=== PATIENT | female | born 1995 | race Caucasian/White ===

== ENCOUNTER → 2018-11-02 | Outpatient (CLI) | payer OTHER | LOC: LAB SHORT 15:00 → LAB 15:00 | DX: N39.0 Urinary tract infection, site not specified (principal) | CPT/HCPCS: 87086 ==

== ENCOUNTER 2024-01-18 13:05 | Emergency (ER) | payer OTHER ==
[~2024-01-18] VITALS: Ht 162.6 cm; Wt 64.0 kg
[2024-01-18] MEDS ORDERED: Ibuprofen 600 MG Tab PO ONE (14:25)
== END 2024-01-18 14:39 | disposition home or self-care (01) ==
LOC: ER 13:05
DX: S93.402A Sprain of unspecified ligament of left ankle, initial encounter (principal); W01.0XXA Fall on same level from slipping, tripping and stumbling without subsequent striking against object, initial encounter
CPT/HCPCS: 73610; 99283-25